=== PATIENT | female | born 1980 | race Caucasian/White ===

== ENCOUNTER → 2016-06-11 | Outpatient (CLI) | payer OTHER ==
--- NOTE | ~2016-06-11 | S ---
[facility] [place] [address] SURGICAL PATH RPT PROCEDURE Name: VANE WOOD Room #: REG JUDE M.Kota.#: [id number] Admission: 06/11/16 Date of : 82 Discharge: Report #: [id number] Path Case #: [id number] PATHOLOGY REPORT COLLECTION DATE: 06/11/2016 RECEIVED DATE: 06/11/2016 SUBMITTING PHYS: Dr. Arpan Henderson OTHER PHYS: SPECIMEN(S) RECEIVED: A.Left thyroid nodule 4 FNA, 3 bx * * * * * * * * * * * * FINAL DIAGNOSIS: Thyroid, left thyroid nodule, needle core biopsy: - FINDINGS SUSPICIOUS FOR PAPILLARY THYROID CARCINOMA (PLEASE SEE COMMENT). COMMENT: Examination shows moderate chronic lymphocytic thyroiditis in the background non-neoplastic tissue that is sampled. Other fragments show papillary architecture along with nuclear grooves, pseudo inclusions as well as occasional calcifications. Approximately 50% of the sample is comprised of neoplastic-appearing cells while the remainder appears non-neoplastic. The concurrent cytology, [id number], showed similar findings. Please refer to a separate report to follow. Co-review: Dr. Zahira Schwarz. Please note sample represents a minute portion of a larger lesion and may not be players club representative. Correlate clinically and follow up as indicated. (IUV:mml; d/t: 06/13/2016) PATHOLOGIST: Maggie Moncada M.D. REPORT ELECTRONICALLY SIGNED BY: Maggie Moncada M.D. DATE/TIME: 06/13/2016 16:25 * * * * * * * * * * * * GROSS PATHOLOGY: The specimen is received in formalin, labeled "Vane Wood, left thyroid nodule". Received are multiple small fragments of pale adam soft tissue measuring 0.5 x 0.3 x 0.1 cm in aggregate dimension. The specimen is filtered and entirely submitted in cassette A1. ([facility]; 06/12/2016) [facility] [place] [address] SURGICAL PATH RPT PROCEDURE Name: VANE WOOD Room #: [facility].#: [id number] Admission: 06/11/16 Date of : 82 Discharge: Report #: [id number] Path Case #: [id number] CLINICAL HISTORY: Thyroid nodule INITIAL CPT CODE(S): A; 97939 Professional services performed by [facility] at [address] , [place] [address] Technical services performed by [facility] at [address] [place] [address], [facility] [address] [place] [address]. [facility] [address] [place] [address] PHONE: [phone] DIRECTOR: Dharmesh Marr M.D. * * * END OF REPORT * * *
--- NOTE | ~2016-06-11 | CNG ---
[facility] [place] [address] CYTO-NONGYN REPORT PROCEDURE Name: VANE WOOD Room #: REG [facility]..#: [id number] Admission: 06/11/16 Date of : 82 Discharge: Report #: [id number] Path Case #: [id number] CYTOPATHOLOGY REPORT COLLECTION DATE: 06/11/2016 RECEIVED DATE: 06/11/2016 SUBMITTING PHYS: Dr. Arpan Henderson OTHER PHYS: CLINICAL HISTORY: Thyroid nodule. See also [id number] SPECIMEN(S) RECEIVED: A.Fine needle aspiration, Left thyroid nodule * * * * * * * * * * * * FINAL DIAGNOSIS: A. Thyroid, left thyroid nodule, fine needle aspiration: B[place]ES[place] CATEGORY III. SUSPICIOUS FOR PAPILLARY CARCINOMA. COMMENT: Examination shows moderately cellular smears with psammoma bodies, dense and watery colloid, rare nuclear pseudoinclusions, papillary epithelial structures, as well as a few grooves. In addition, abundant Hurthle cell changes, benign follicular epithelial cells and microfollicles are identified in the background. Overall findings are highly suspicious for involvement by papillary thyroid carcinoma. The scant nature of the neoplastic cells limits a definitive diagnosis. The differential diagnosis includes reactive changes in an inflammatory background. The concurrent biopsy tissue ([id number]) showed similar findings. Please refer to the separate report for details. Please note sample represents a minor portion of a larger lesion and may not be delivery representative. Clinical correlation is suggested. Portion of this specimen is saved in the RNARetain vial which will be held for molecular studies if needed. Co-review: Dr. Zahira Schwarz PATHOLOGIST: Maggie Moncada M.D. REPORT ELECTRONICALLY SIGNED BY: Maggie Moncada M.D. DATE/TIME: 06/13/2016 14:55 * * * * * * * * * * * * GROSS PATHOLOGY: A.Fine needle aspiration, Left thyroid nodule: The specimen is labeled "Vane Wood" and consists of four fixed slides, four air dried slides. Thirty mL of clear pink fluid material in [employer]to[employer] from [address] [address] CYTO-NONGYN REPORT PROCEDURE Name: VANE WOOD Room #: REG [facility].#: [id number] Admission: 06/11/16 Date of : 82 Discharge: Report #: [id number] Path Case #: [id number] the needle rinse is also submitted and one ThinPrep slide and a cell block were prepared from this material. (clt 06.11.2016) Also received is the RNARetain vial which will be held for molecular studies if needed. LICENSED OPTICAL DISPENSER(S): VISHAL Valdez(ASCP), KAYLIE INITIAL CPT CODE(S): A; 08285, 41797 Professional services performed by [facility] [address], [place] [address] Technical services performed by [facility] at [address] [place] [address], [address], [place] [address]. [facility] [address] [facility], [address] [place] [address] PHONE: [phone] DIRECTOR: Dharmesh Marr M.D. * * * END OF REPORT * * *
== END | disposition home or self-care (01) ==
LOC: ULTRA 07:36
DX: E04.1 Nontoxic single thyroid nodule (principal)